=== PATIENT | male | born 1965 | race Caucasian/White ===

== ENCOUNTER 2021-04-21 09:44 | Inpatient (IN) | payer OTHER ==
[2021-04-21 10:11] LABS: ALLEN TEST PERFORMED; BASE EXCESS ARTERIAL -1 mmol/L ((-2)-(+3)); BICARBONATE,ARTERIAL 22.6 mmol/L (22-26); O2 DELIVERY DEVICE NASAL CANNULA; O2 SATURATION ARTERIAL 97 % (95-100); PCO2 ARTERIAL 36 mmHg (35-45); PO2 ARTERIAL 85 mmHg (70-100)
[2021-04-21] MEDS ORDERED: Dexamethasone 4 MG/ML SDV IVPUSH ONE (10:14)
--- NOTE | 2021-04-21 10:14 | EDM.PDOC ---
ED HPI GENERAL MEDICAL PROBLEM - General Chief Complaint: Respiratory Problem Stated Complaint: AMBULANCE Time Seen by Provider: 04/21/21 10:26 Source of Information: Reports: Patient History Limitations: Reports: No Limitations - History of Present Illness INITIAL COMMENTS - FREE TEXT/NARRATIVE: 56 y/o M coming from clinic for hypoxia and positive covid. He reports he was seen by his provider Hernandez MANAGER OF INTERNAL AUDIT. Hernandez called the ER and informed me the pt os sats are in the 70's at rest and that they put him on o2 4L which brought him up into the upper 80's. Hernandez also had a CXr done and sent the cd with the pt. Pt reports he has been sick since last sunday with cough, sob, intermittent sweats, chills, and fever. Hx of obesity, type II diabetes. No lung, CAD hx. Denies NVD, cp, abd pn, recent trauma, diff voiding, constipation. - Related Data Allergies Allergy/AdvReac Type Severity Reaction Status Date / Time No Known Allergies Allergy Verified 04/21/21 10:45 Home Meds: Home Meds Aspirin [Halfprin] 81 mg PO DAILY 07/21/16 [History] Lisinopril 20 mg PO DAILY 07/21/16 [History] Simvastatin [Zocor] 20 mg PO DAILY 07/21/16 [History] metFORMIN [Glucophage XR] 1,000 mg PO BIDMEALS 04/21/21 [History] Past Medical History HEENT History: Reports: None Cardiovascular History: Reports: High Cholesterol, Hypertension Respiratory History: Reports: None Gastrointestinal History: Reports: None Genitourinary History: Reports: None Musculoskeletal History: Reports: None Neurological History: Reports: None Psychiatric History: Reports: Other (See Below) Other Psychiatric History: ALCOHOL HABITUATION Endocrine/Metabolic History: Reports: Obesity/BMI 30+, Other (See Below) Other Endocrine/Metabolic History: PRIOR TYPE TWO DIABETIC Hematologic History: Reports: None Immunologic History: Reports: None Oncologic (Cancer) History: Reports: None Dermatologic History: Reports: None - Infectious Disease History Infectious Disease History: Reports: Chicken Pox, Measles - Past Surgical History GI Surgical History: Reports: Colonoscopy, Hernia Repair/Other, Other (See Below) Social & Family History - Family History Family Medical History: No Pertinent Family History HEENT: Reports: None Cardiac: Reports: None Respiratory: Reports: None GI: Reports: None : Reports: None OBGYN: Reports: None Musculoskeletal: Reports: None Neurological: Reports: None Psychiatric: Reports: None Endocrine/Metabolic: Reports: None Hematologic: Reports: None Immunologic: Reports: None Dermatologic: Reports: None Oncologic: Reports: Breast - Caffeine Use Caffeine Use: Reports: None ED ROS GENERAL - Review of Systems Review Of Systems: Comprehensive ROS is negative, except as noted in HPI. ED EXAM, GENERAL - Physical Exam Exam: See Below Exam Limited By: No Limitations General Appearance: Alert, No Apparent Distress Eye Exam: Bilateral Eye: PERRL Ears: Normal External Exam, Normal Canal, Hearing Grossly Normal, Normal TMs Nose: Normal Inspection, Normal Mucosa, No Blood Throat/Mouth: Normal Inspection, Normal Lips, Normal Teeth, Normal Gums, Normal Oropharynx, Normal Voice, No Airway Compromise Head: Atraumatic, Normocephalic Neck: Normal Inspection, Supple, Non-Tender, Full Range of Motion Respiratory/Chest: Respiratory Distress, Crackles (in the bases.) Cardiovascular: Normal Peripheral Pulses, Regular Rate, Rhythm, No Edema, No Gallop, No JVD, No Murmur, No Rub GI/Abdominal: Soft, Non-Tender (Male) Exam: Deferred Rectal (Males) Exam: Deferred Back Exam: Normal Inspection, Full Range of Motion, NT Extremities: Normal Inspection, Normal Range of Motion, Non-Tender, Normal Capillary Refill, No Pedal Edema Neurological: Alert, Oriented, CN II-XII Intact, Normal Cognition, Normal Gait, Normal Reflexes, No Motor/Sensory Deficits Psychiatric: Normal Affect, Normal Mood Skin Exam: Warm, Dry, Intact #1 Interpretation EKG Date: 04/21/21 Time: 09:56 Rhythm: NSR [place]: LAD-Left [place] Deviation P-Wave: Present QRS: Wide ST-T: Normal QT: Normal EKG Interpretation Comments: sinus rhythm pathologic left axis, no visible hypertrophy, no st changes delayed R wave progression Course - Vital Signs Last Recorded V/S: Last Vital Signs Temp 98.9 F 04/21/21 09:56 Pulse 83 04/21/21 09:56 Resp 25 H 04/21/21 09:56 BP 103/61 04/21/21 09:56 Pulse Ox 95 04/21/21 11:02 - Orders/Labs/Meds Orders: Active Orders 24 hr Category Date Time Status CULTURE BLOOD [BC] Stat Lab 04/21/21 10:05 Received CULTURE BLOOD [BC] Stat Lab 04/21/21 10:16 Received Blood Culture x2 Reflex Set [OM.PC] Stat Oth 04/21/21 09:52 Ordered Labs: Laboratory Tests 04/21/21 04/21/21 04/21/21 Range/Units 10:05 10:05 10:05 WBC 5.8 (5.0-10.0) 10^3/uL RBC 4.48 L (4.6-6.2) 10^6/uL Hgb 13.0 L (14.0-18.0) g/dL Hct 39.2 L (40.0-54.0) % MCV 87.5 (80-100) fL MCH 29.0 (27.0-34.0) pg MCHC 33.2 (33.0-35.0) g/dL Plt Count 153 (150-450) 10^3/uL Neut % (Auto) 86.3 H (42.2-75.2) % Lymph % (Auto) 9.5 L (20.5-50.1) % [place] % (Auto) 4.0 (2-8) % Eos % (Auto) 0.0 L (1.0-3.0) % Baso % (Auto) 0.2 (0.0-1.0) % ABG pH (7.35-7.45) ABG pCO2 (35-45) mmHg ABG pO2 (70-100) mmHg ABG HCO3 (22-26) mmol/L ABG O2 Saturation (95-100) % ABG Base Excess ((-2)-(+3)) mmol/L Omar Test O2 Delivery Device Sodium 134 L (136-145) mmol/L Potassium 3.3 L (3.5-5.1) mmol/L Chloride 97 L (98-107) mmol/L Carbon Dioxide 25 (21-32) mmol/L Anion Gap 15.3 H (7-13) mEq/L BUN 18 (7-18) mg/dL Creatinine 1.20 (0.70-1.30) mg/dL Est Cr Clr Drug Dosing 64.26 mL/min Estimated GFR (MDRD) > 60 BUN/Creatinine Ratio 15.0 (No establ ref range) Glucose 172 H (70-99) mg/dL Lactic Acid 1.3 (0.4-2.0) mmol/L Calcium 7.8 L (8.5-10.1) mg/dL Magnesium 2.3 (1.8-2.4) mg/dL Ferritin (26-388) mg/mL Total Bilirubin 0.5 (0.2-1.0) mg/dL AST 87 H (15-37) U/L ALT 47 (16-63) U/L Alkaline Phosphatase 55 (46-116) U/L C-Reactive Protein 17.5 H (0.0-0.9) mg/dL B-Natriuretic Peptide 62 (0-100) pg/ml Total Protein 7.0 (6.4-8.2) g/dL Albumin 2.7 L (3.4-5.0) g/dL Globulin 4.3 Albumin/Globulin Ratio 0.63 Amylase 36 (25-115) U/L Lipase 174 (73-393) U/L 04/21/21 04/21/21 Range/Units 10:07 10:16 WBC (5.0-10.0) 10^3/uL RBC (4.6-6.2) 10^6/uL Hgb (14.0-18.0) g/dL Hct (40.0-54.0) % MCV (80-100) fL MCH (27.0-34.0) pg MCHC (33.0-35.0) g/dL Plt Count (150-450) 10^3/uL Neut % (Auto) (42.2-75.2) % Lymph % (Auto) (20.5-50.1) % [place] % (Auto) (2-8) % Eos % (Auto) (1.0-3.0) % Baso % (Auto) (0.0-1.0) % ABG pH 7.41 (7.35-7.45) ABG pCO2 36 (35-45) mmHg ABG pO2 85 (70-100) mmHg ABG HCO3 22.6 (22-26) mmol/L ABG O2 Saturation 97 (95-100) % ABG Base Excess -1 ((-2)-(+3)) mmol/L Omar Test Performed O2 Delivery Device Nasal cannula Sodium (136-145) mmol/L Potassium (3.5-5.1) mmol/L Chloride (98-107) mmol/L Carbon Dioxide (21-32) mmol/L Anion Gap (7-13) mEq/L BUN (7-18) mg/dL Creatinine (0.70-1.30) mg/dL Est Cr Clr Drug Dosing mL/min Estimated GFR (MDRD) BUN/Creatinine Ratio (No establ ref range) Glucose (70-99) mg/dL Lactic Acid (0.4-2.0) mmol/L Calcium (8.5-10.1) mg/dL Magnesium (1.8-2.4) mg/dL Ferritin 2757 H (26-388) mg/mL Total Bilirubin (0.2-1.0) mg/dL AST (15-37) U/L ALT (16-63) U/L Alkaline Phosphatase (46-116) U/L C-Reactive Protein (0.0-0.9) mg/dL B-Natriuretic Peptide (0-100) pg/ml Total Protein (6.4-8.2) g/dL Albumin (3.4-5.0) g/dL Globulin Albumin/Globulin Ratio Amylase (25-115) U/L Lipase (73-393) U/L Meds: Medications Discontinued Medications Generic Name Dose Route Start Last Admin Trade Name Freq PRN Reason Stop Dose Admin Dexamethasone 6 mg 04/21/21 10:14 04/21/21 11:00 Dexamethasone 4 Mg/Ml Sdv IVPUSH 04/21/21 10:15 6 mg ONETIME ONE Administration Sodium Chloride 1,000 mls @ 999 mls/hr 04/21/21 10:55 04/21/21 11:00 Normal Saline IV 04/21/21 11:55 999 mls/hr .BOLUS ONE Administration - Re-Assessments/Exams Free Text/Narrative Re-Assessment/Exam: 04/21/21 12:46 I have spoke with Dr. Tariq and he will admit the pt to inpatient for treatment of his COVID symptoms. Departure - Departure Time of Disposition: 12:47 (Dr. Tariq) Disposition: Admitted As Inpatient 66 Condition: Good Clinical Impression: COVID, Hypoxia - Discharge Information *PRESCRIPTION DRUG MONITORING PROGRAM REVIEWED*: Not Applicable *COPY OF PRESCRIPTION DRUG MONITORING REPORT IN PATIENT GUZMAN: Not Applicable Forms: ED Department Discharge Sepsis Event Note (ED) - Evaluation Sepsis Screening Result: No Definite Risk - Focused Exam Vital Signs: Vital Signs Temp Pulse Resp BP Pulse Ox Pulse Ox 04/21/21 11:02 95 04/21/21 09:56 98.9 F 83 25 H 103/61 92 L - My Orders Last 24 Hours: My Active Orders 04/21/21 09:52 Blood Culture x2 Reflex Set [OM.PC] Stat 04/21/21 10:05 CULTURE BLOOD [BC] Stat 04/21/21 10:16 CULTURE BLOOD [BC] Stat - Assessment/Plan Last 24 Hours: My Active Orders 04/21/21 09:52 Blood Culture x2 Reflex Set [OM.PC] Stat 04/21/21 10:05 CULTURE BLOOD [BC] Stat 04/21/21 10:16 CULTURE BLOOD [BC] Stat
[2021-04-21 10:46] LABS: ANION GAP 15.3 mEq/L (7-13); CHLORIDE,CL 97 mmol/L (98-107); SODIUM,NA 134 mmol/L (136-145)
[2021-04-21] MEDS ORDERED: Sodium Chloride 0.9% 1,000 ML IV ONE (10:55)
[2021-04-21] MEDS ORDERED: Albuterol/Ipratropium 3.0-0.5 MG/3 ML Neb Soln NEB PRN (14:30)
[2021-04-21] MEDS ORDERED: Acetaminophen 325 MG Tab PO PRN (14:30)
[2021-04-21] MEDS ORDERED: Albuterol 0.083% 2.5 MG/3 ML Neb Soln NEB PRN (14:30)
[2021-04-21] MEDS ORDERED: Ondansetron 4 MG/2 ML SDV IVPUSH PRN (14:30)
[2021-04-21] MEDS ORDERED: 50% Dextrose in Water 50 ML Syringe IVPUSH PRN (14:39)
[2021-04-21] MEDS ORDERED: Glucagon,Human Recombinant 1 MG Vial IM PRN (14:39)
[2021-04-21] MEDS ORDERED: Azithromycin 500 MG in Sodium Chloride 0.9% 250 ML IV SCH (15:00)
[2021-04-21] MEDS ORDERED: Enoxaparin 40 MG/0.4 ML Syringe SUBCUT SCH (15:00)
--- NOTE | 2021-04-21 15:12 | PCM.HP ---
H&P History of Present Illness - General Date of Service: 04/21/21 Admit Problem/Dx: Admission Diagnosis/Problem Admission Diagnosis/Problem Hypoxia Source of Information: Patient, Other (ER provider) - History of Present Illness Initial Comments - Free Text/Narative: 56 y/o M coming from clinic for hypoxia and positive covid. He reports he was seen by his provider Hernandez BENDER MACHINE OPERATOR. Hernandez called the ER and informed me the pt os sats are in the 70's at rest and that they put him on o2 4L which brought him up into the upper 80's. Hernandez also had a CXr done and sent the cd with the pt. Pt reports he has been sick since last sunday with cough, sob, intermittent sweats, chills, and fever. Pt states that he was tested positive for COVID two days ago. pt reports that he has not been vaccinated against covid Hx of obesity, type II diabetes. Onset of Symptoms: Reports: Gradual Duration of Symptoms: Reports: Day(s): (7) - Related Data Allergies/Adverse Reactions: Allergies Allergy/AdvReac Type Severity Reaction Status Date / Time No Known Allergies Allergy Verified 04/21/21 10:45 Home Medications: Home Meds Aspirin [Halfprin] 81 mg PO DAILY 07/21/16 [History] Lisinopril 20 mg PO DAILY 07/21/16 [History] Simvastatin [Zocor] 20 mg PO DAILY 07/21/16 [History] metFORMIN [Glucophage XR] 1,000 mg PO BIDMEALS 04/21/21 [History] Past Medical History HEENT History: Reports: None Cardiovascular History: Reports: High Cholesterol, Hypertension Respiratory History: Reports: None Gastrointestinal History: Reports: None Genitourinary History: Reports: None Musculoskeletal History: Reports: None Neurological History: Reports: None Psychiatric History: Reports: Other (See Below) Other Psychiatric History: ALCOHOL HABITUATION Endocrine/Metabolic History: Reports: Diabetes, Type II, Obesity/BMI 30+ Other Endocrine/Metabolic History: PRIOR TYPE TWO DIABETIC Hematologic History: Reports: None Immunologic History: Reports: None Oncologic (Cancer) History: Reports: None Dermatologic History: Reports: None - Infectious Disease History Infectious Disease History: Reports: Chicken Pox, Measles, Novel Coronavirus - Past Surgical History Head Surgeries/Procedures: Reports: None HEENT Surgical History: Reports: None Cardiovascular Surgical History: Reports: None Respiratory Surgical History: Reports: None GI Surgical History: Reports: Colonoscopy, Hernia Repair/Other, Other (See Below) Other GI Surgeries/Procedures: UMBILICAL HERNIA REPAIR Male Surgical History: Reports: None Neurological Surgical History: Reports: None Musculoskeletal Surgical History: Reports: None Oncologic Surgical History: Reports: None Dermatological Surgical History: Reports: None Social & Family History - Family History Family Medical History: No Pertinent Family History HEENT: Reports: None Cardiac: Reports: None Respiratory: Reports: None GI: Reports: None : Reports: None OBGYN: Reports: None Musculoskeletal: Reports: None Neurological: Reports: None Psychiatric: Reports: None Endocrine/Metabolic: Reports: None Hematologic: Reports: None Immunologic: Reports: None Dermatologic: Reports: None Oncologic: Reports: Breast - Tobacco Use Tobacco Use Status *Q: Current Every Day Tobacco User Years of Tobacco use: 40 Packs/Tins Daily: 1 - Caffeine Use Caffeine Use: Reports: None - Recreational Drug Use Recreational Drug Use: No H&P Review of Systems - Review of Systems: Review Of Systems: Comprehensive ROS is negative, except as noted in HPI. General: Reports: Fever, Chills, Malaise, Fatigue Pulmonary: Reports: Shortness of Breath, Cough Cardiovascular: Denies: Chest Pain Gastrointestinal: Denies: Abdominal Pain Genitourinary: Denies: Dysuria Musculoskeletal: Denies: Neck Pain Skin: Reports: No Symptoms Psychiatric: Reports: No Symptoms Neurological: Reports: No Symptoms Hematologic/Lymphatic: Reports: No Symptoms Exam - Exam Exam: See Below - Vital Signs Vital Signs: Last Vital Signs Temp 98.9 F 04/21/21 09:56 Pulse 83 04/21/21 09:56 Resp 25 H 04/21/21 09:56 BP 103/61 04/21/21 09:56 Pulse Ox 95 04/21/21 11:02 Weight: 320 lb - Exam Quality Assessment: Supplemental Oxygen General: Cooperative, Mild Distress Neck: Supple Lungs: Clear to Auscultation Cardiovascular: Regular Rate, Regular Rhythm GI/Abdominal Exam: Soft, Non-Tender Rectal (Males) Exam: Deferred Back Exam: Normal Inspection Extremities: Normal Inspection. No: Pedal Edema Skin: Warm, Dry Neurological: Cranial Nerves Intact Neuro Extensive - Mental Status: Alert, Oriented x3 Neuro Extensive - Motor, Sensory, Reflexes: CN II-XII Intact - Patient Data Lab Results Last 24 hrs: Laboratory Results - last 24 hr 04/21/21 04/21/21 04/21/21 Range/Units 10:05 10:05 10:05 WBC 5.8 (5.0-10.0) 10^3/uL RBC 4.48 L (4.6-6.2) 10^6/uL Hgb 13.0 L (14.0-18.0) g/dL Hct 39.2 L (40.0-54.0) % MCV 87.5 (80-100) fL MCH 29.0 (27.0-34.0) pg MCHC 33.2 (33.0-35.0) g/dL Plt Count 153 (150-450) 10^3/uL Neut % (Auto) 86.3 H (42.2-75.2) % Lymph % (Auto) 9.5 L (20.5-50.1) % [place] % (Auto) 4.0 (2-8) % Eos % (Auto) 0.0 L (1.0-3.0) % Baso % (Auto) 0.2 (0.0-1.0) % ABG pH (7.35-7.45) ABG pCO2 (35-45) mmHg ABG pO2 (70-100) mmHg ABG HCO3 (22-26) mmol/L ABG O2 Saturation (95-100) % ABG Base Excess ((-2)-(+3)) mmol/L Omar Test O2 Delivery Device Sodium 134 L (136-145) mmol/L Potassium 3.3 L (3.5-5.1) mmol/L Chloride 97 L (98-107) mmol/L Carbon Dioxide 25 (21-32) mmol/L Anion Gap 15.3 H (7-13) mEq/L BUN 18 (7-18) mg/dL Creatinine 1.20 (0.70-1.30) mg/dL Est Cr Clr Drug Dosing 64.26 mL/min Estimated GFR (MDRD) > 60 BUN/Creatinine Ratio 15.0 (No establ ref range) Glucose 172 H (70-99) mg/dL Lactic Acid 1.3 (0.4-2.0) mmol/L Calcium 7.8 L (8.5-10.1) mg/dL Magnesium 2.3 (1.8-2.4) mg/dL Ferritin (26-388) mg/mL Total Bilirubin 0.5 (0.2-1.0) mg/dL AST 87 H (15-37) U/L ALT 47 (16-63) U/L Alkaline Phosphatase 55 (46-116) U/L C-Reactive Protein 17.5 H (0.0-0.9) mg/dL B-Natriuretic Peptide 62 (0-100) pg/ml Total Protein 7.0 (6.4-8.2) g/dL Albumin 2.7 L (3.4-5.0) g/dL Globulin 4.3 Albumin/Globulin Ratio 0.63 Amylase 36 (25-115) U/L Lipase 174 (73-393) U/L 04/21/21 04/21/21 Range/Units 10:07 10:16 WBC (5.0-10.0) 10^3/uL RBC (4.6-6.2) 10^6/uL Hgb (14.0-18.0) g/dL Hct (40.0-54.0) % MCV (80-100) fL MCH (27.0-34.0) pg MCHC (33.0-35.0) g/dL Plt Count (150-450) 10^3/uL Neut % (Auto) (42.2-75.2) % Lymph % (Auto) (20.5-50.1) % [place] % (Auto) (2-8) % Eos % (Auto) (1.0-3.0) % Baso % (Auto) (0.0-1.0) % ABG pH 7.41 (7.35-7.45) ABG pCO2 36 (35-45) mmHg ABG pO2 85 (70-100) mmHg ABG HCO3 22.6 (22-26) mmol/L ABG O2 Saturation 97 (95-100) % ABG Base Excess -1 ((-2)-(+3)) mmol/L Omar Test Performed O2 Delivery Device Nasal cannula Sodium (136-145) mmol/L Potassium (3.5-5.1) mmol/L Chloride (98-107) mmol/L Carbon Dioxide (21-32) mmol/L Anion Gap (7-13) mEq/L BUN (7-18) mg/dL Creatinine (0.70-1.30) mg/dL Est Cr Clr Drug Dosing mL/min Estimated GFR (MDRD) BUN/Creatinine Ratio (No establ ref range) Glucose (70-99) mg/dL Lactic Acid (0.4-2.0) mmol/L Calcium (8.5-10.1) mg/dL Magnesium (1.8-2.4) mg/dL Ferritin 2757 H (26-388) mg/mL Total Bilirubin (0.2-1.0) mg/dL AST (15-37) U/L ALT (16-63) U/L Alkaline Phosphatase (46-116) U/L C-Reactive Protein (0.0-0.9) mg/dL B-Natriuretic Peptide (0-100) pg/ml Total Protein (6.4-8.2) g/dL Albumin (3.4-5.0) g/dL Globulin Albumin/Globulin Ratio Amylase (25-115) U/L Lipase (73-393) U/L Result Diagrams: 04/21/21 10:05 04/21/21 10:05 Problem List Initiated/Reviewed/Updated: No Orders Last 24hrs: Active Orders 24 hr Category Date Time Status Admission Diagnosis [ADT] Stat ADT 04/21/21 12:48 Ordered Admission Status [Patient Status] [ADT] Routine ADT 04/21/21 12:48 Active Blood Glucose Check, Bedside [RC] WITHMEALSANDBED Care 04/21/21 14:30 Ordered Nurse Communication: Isolation [RC] ASDIRECTED Care 04/21/21 14:47 Ordered Oxygen Therapy [RC] PRN Care 04/21/21 14:34 Ordered RT Aerosol Therapy [RC] ASDIRECTED Care 04/21/21 14:36 Ordered Up With Assistance [RC] ASDIRECTED Care 04/21/21 14:30 Ordered VTE/DVT Education [RC] PER UNIT ROUTINE Care 04/21/21 14:34 Ordered Verify Patient Consent Obtain [RC] ASDIRECTED Care 04/21/21 14:45 Ordered Vital Signs [RC] Q4H Care 04/21/21 14:34 Ordered Respiratory Care Assess and Treatment [CONS] Routine Cons 04/21/21 14:30 Ordered Consistent Carbohydrate Diet [DIET] Diet 04/21/21 Dinner Ordered BILIRUBIN DIRECT [CHEM] DAILY Lab 04/21/21 15:00 Ordered BILIRUBIN DIRECT [CHEM] DAILY Lab 04/22/21 15:00 Ordered BILIRUBIN DIRECT [CHEM] DAILY Lab 04/23/21 15:00 Ordered BILIRUBIN DIRECT [CHEM] DAILY Lab 04/24/21 15:00 Ordered BILIRUBIN DIRECT [CHEM] DAILY Lab 04/25/21 15:00 Ordered CBC WITH AUTO DIFF [HEME] AM Lab 04/22/21 05:11 Ordered CBC WITH AUTO DIFF [HEME] AM Lab 04/23/21 05:11 Ordered CBC WITH AUTO DIFF [HEME] AM Lab 04/24/21 05:11 Ordered CBC WITH AUTO DIFF [HEME] AM Lab 04/25/21 05:11 Ordered CBC WITH AUTO DIFF [HEME] AM Lab 04/26/21 05:11 Ordered CBC WITH AUTO DIFF [HEME] AM Lab 04/27/21 05:11 Ordered CBC WITH AUTO DIFF [HEME] AM Lab 04/28/21 05:11 Ordered COMPREHENSIVE METABOLIC PN,CMP [CHEM] AM Lab 04/22/21 05:11 Ordered COMPREHENSIVE METABOLIC PN,CMP [CHEM] AM Lab 04/23/21 05:11 Ordered COMPREHENSIVE METABOLIC PN,CMP [CHEM] AM Lab 04/24/21 05:11 Ordered COMPREHENSIVE METABOLIC PN,CMP [CHEM] AM Lab 04/25/21 05:11 Ordered COMPREHENSIVE METABOLIC PN,CMP [CHEM] AM Lab 04/26/21 05:11 Ordered COMPREHENSIVE METABOLIC PN,CMP [CHEM] AM Lab 04/27/21 05:11 Ordered COMPREHENSIVE METABOLIC PN,CMP [CHEM] AM Lab 04/28/21 05:11 Ordered CULTURE BLOOD [BC] Stat Lab 04/21/21 10:05 Received CULTURE BLOOD [BC] Stat Lab 04/21/21 10:16 Received FERRITIN [CHEM] DAILY Lab 04/22/21 05:00 Ordered FERRITIN [CHEM] DAILY Lab 04/23/21 05:00 Ordered FERRITIN [CHEM] DAILY Lab 04/24/21 05:00 Ordered PROCALCITONIN [REF] DAILY Lab 04/22/21 15:00 Ordered PROCALCITONIN [REF] DAILY Lab 04/23/21 15:00 Ordered PROCALCITONIN [REF] DAILY Lab 04/24/21 15:00 Ordered Acetaminophen [TylenoL] Med 04/21/21 14:30 Ordered 650 mg PO Q4H PRN Albuterol [Proventil Neb Soln] Med 04/21/21 14:30 Ordered 2.5 mg NEB Q2H PRN Albuterol/Ipratropium [DuoNeb 3.0-0.5 MG/3 ML] Med 04/21/21 14:30 Ordered 3 ml NEB Q4H PRN Azithromycin [Zithromax] Med 04/22/21 09:00 Ordered 250 mg PO DAILY Azithromycin [Zithromax] 500 mg Med 04/21/21 15:00 Ordered Sodium Chloride 0.9% [Normal Saline (AdvBag)] 250 ml IV Q24H Dextrose 50% in Water Med 04/21/21 14:39 Ordered 50 ml IVPUSH Q15M PRN Enoxaparin [Lovenox] Med 04/21/21 14:45 Ordered 40 mg SUBCUT DAILY Glucagon,Human Recombinant [GlucaGen] Med 04/21/21 14:39 Ordered 1 mg IM Q15M PRN Insulin Lispro [HumaLOG] Med 04/21/21 18:00 Ordered See Protocol SUBCUT WITHMEALSANDBED Ondansetron [Zofran] Med 04/21/21 14:30 Ordered 4 mg IVPUSH Q6H PRN Remdesivir 100 mg Med 04/22/21 09:00 Ordered Sodium Chloride 0.9% [Normal Saline] 100 ml IV Q24H Remdesivir 200 mg Med 04/21/21 14:45 Ordered Sodium Chloride 0.9% [Normal Saline] 250 ml IV ONETIME Tocilizumab [Actemra] 800 mg Med 04/21/21 16:00 Active Sodium Chloride 0.9% [Normal Saline] 60 ml IV ONETIME dexAMETHasone [Decadron] Med 04/22/21 09:00 Ordered 6 mg IVPUSH DAILY Blood Culture x2 Reflex Set [OM.PC] Stat Oth 04/21/21 09:52 Ordered Isolation [COMM] Stat Oth 04/21/21 14:45 Ordered Resuscitation Status Routine Resus Stat 04/21/21 14:30 Ordered Medication Orders Acetaminophen (Acetaminophen 325 Mg Tab) 650 mg PO Q4H PRN PRN Reason: Pain (Mild 1-3)/fever Albuterol (Albuterol 0.083% 2.5 Mg/3 Ml Neb Soln) 2.5 mg NEB Q2H PRN PRN Reason: shortness of breath/wheezing Albuterol/Ipratropium (Albuterol/Ipratropium 3.0-0.5 Mg/3 Ml Neb Soln) 3 ml NEB Q4H PRN PRN Reason: shortness of breath/wheezing Azithromycin (Azithromycin 250 Mg Tab) 250 mg PO DAILY MISHEL Dexamethasone (Dexamethasone 4 Mg/Ml Sdv) 6 mg IVPUSH DAILY [facility] Dextrose/Water (50% Dextrose In Water 50 Ml Syringe) 50 ml IVPUSH Q15M PRN PRN Reason: Hypoglycemia Enoxaparin Sodium (Enoxaparin 40 Mg/0.4 Ml Syringe) 40 mg SUBCUT DAILY [facility] Glucagon (Glucagon,Human Recombinant 1 Mg Vial) 1 mg IM Q15M PRN PRN Reason: Hypoglycemia Tocilizumab 800 mg/ Sodium (Chloride) 100 mls @ 100 mls/hr IV ONETIME ONE Stop: 04/21/21 16:59 Remdesivir 200 mg/ Sodium (Chloride) 250 mls @ 250 mls/hr IV ONETIME ONE Stop: 04/21/21 15:44 Remdesivir 100 mg/ Sodium (Chloride) 100 mls @ 100 mls/hr IV Q24H MISHEL Stop: 04/25/21 09:59 Azithromycin 500 mg/ Sodium (Chloride) 250 mls @ 250 mls/hr IV Q24H [facility] Insulin Human Lispro (Insulin Lispro 100 Units/Ml 3 Ml Vial) 0 unit SUBCUT WITHMEALSANDBED MISHEL; Protocol Ondansetron HCl (Ondansetron 4 Mg/2 Ml Sdv) 4 mg IVPUSH Q6H PRN PRN Reason: Nausea/Vomiting Assessment/Plan Comment:: Respiratory failure/ hypoxia /COVID pneumonia/ Multiple risk factors: morbid obesity ( BMI: 50), DM and HTN and unvaccinated status. elevated ferritin level. O2 Dexamethasone. Tocilizumab Zithromax and Rocephin Nebs as needed Insulin PRN DVT prophylaxis. Full code D/W pt the need for transfer to a higher level of care. I called [facility]: No bed. Mauricio: awaiting reply. Total time 90 min
[2021-04-21] MEDS ORDERED: REMDESIVIR 200 MG in Sodium Chloride 0.9% 250 ML IV ONE (16:00)
--- NOTE | 2021-04-21 16:38 | PCM.SN.2 ---
- Free Text/Narrative Note: For discharge summary see h/p done early today. Pt was accepted by Dr. Kat from [place]. Pt was informed and he agrees with plan Total time spent on discharge 30 mins Time Documentation
[2021-04-21] MEDS ORDERED: Insulin Lispro 100 Units/ML 3 ML Vial SUBCUT SCH (18:00)
[2021-04-21] MEDS ORDERED: Albuterol/Ipratropium 3.0-0.5 MG/3 ML Neb Soln NEB SCH (19:00)
[2021-04-21 20:04] VITALS: BP 165/68; PULSE 73
[2021-04-22] MEDS ORDERED: Dexamethasone 4 MG/ML SDV IVPUSH SCH (09:00)
[2021-04-22] MEDS ORDERED: REMDESIVIR 100 MG in Sodium Chloride 0.9% 100 ML IV SCH (09:00)
[2021-04-22] MEDS ORDERED: Azithromycin 250 MG Tab PO SCH (09:00)
== END 2021-04-21 17:40 | DRG 177 ==
LOC: DL.ED 09:44 → DL.MS 12:48
PROVIDERS: ADMIT Internal Medicine; ATTEND Internal Medicine
PROC: 8E0ZXY6 Isolation (ICD-10-PCS; principal; 2021-04-21)
DX: U07.1 COVID-19 (principal); J12.82 Pneumonia due to coronavirus disease 2019; J96.90 Respiratory failure, unspecified, unspecified whether with hypoxia or hypercapnia; Z68.43 Body mass index [BMI] 50.0-59.9, adult; E11.9 Type 2 diabetes mellitus without complications; R09.02 Hypoxemia; F17.210 Nicotine dependence, cigarettes, uncomplicated; E78.00 Pure hypercholesterolemia, unspecified; Z86.16 Personal history of COVID-19; Z86.19 Personal history of other infectious and parasitic diseases; I10 Essential (primary) hypertension; Z79.84 Long term (current) use of oral hypoglycemic drugs; Z98.890 Other specified postprocedural states; E66.01 Morbid (severe) obesity due to excess calories; F10.20 Alcohol dependence, uncomplicated; Z86.39 Personal history of other endocrine, nutritional and metabolic disease; Z79.82 Long term (current) use of aspirin; Z79.899 Other long term (current) drug therapy
CPT/HCPCS: 36415; 36600; 80053; 82150; 82728; 82803; 83605; 83690; 83735; 83880; 85025; 86140; 87040 ×2; 93005; 96374; 99285; J1100; J7030; J0456; J1650; J7050